=== PATIENT | female | born 1985 | race Caucasian/White ===

== ENCOUNTER → 2017-12-09 | Outpatient (CLI) | payer BC ==
[~2017-12-09] MED LIST: FOLIC ACID800 MCG PO; INDERAL 20MG20 MG PO; IRON325 M2 PO; MOTRIN 600600 MG/TAB PO; PERCOCET 325 MG1 TA2 PO; PRILOSEC 20MG20 MG PO; VENTOLIN0.09 MG; ZYRTEC 10MG10 MG PO
== END ==
LOC: MC.RAD 08:15
DX: N63.11 Unspecified lump in the right breast, upper outer quadrant (principal)

== ENCOUNTER → 2021-08-06 | Outpatient (CLI) | payer MEDICAID | LOC: COL.RAD 14:45 | DX: R07.9 Chest pain, unspecified (principal) | CPT/HCPCS: Q9967 ==

== ENCOUNTER → 2021-09-06 | Outpatient (CLI) | payer MEDICAID ==
[~2021-09-06] MED LIST changes: +FLEXERIL 1010 MG/TAB PO
== END ==
LOC: COL.RAD 07:42
DX: M75.112 Incomplete rotator cuff tear or rupture of left shoulder, not specified as traumatic (principal)

== ENCOUNTER 2021-09-15 03:23 | Emergency (ER) | payer MEDICAID ==
[~2021-09-15] VITALS: Ht 167.6 cm; Wt 79.5 kg
[~2021-09-15 03:23] MED LIST changes: -FLEXERIL 1010 MG/TAB PO
[2021-09-15 03:26] VITALS: TEMP 98.9
[2021-09-15] MEDS ORDERED: FLEXERIL 1010 MG/TAB PO (04:47)
[2021-09-15 05:14] VITALS: BP 144/64; PULSE 98
== END 2021-09-15 05:24 | disposition home or self-care (01) ==
LOC: COL.ER 03:23
DX: R07.89 Other chest pain (principal); F17.210 Nicotine dependence, cigarettes, uncomplicated
CPT/HCPCS: A9284; J1885; J2060; J3010; J7040

== ENCOUNTER → 2021-09-23 | Outpatient (CLI) | payer MEDICAID ==
[~2021-09-23] MED LIST changes: +FLEXERIL 1010 MG/TAB PO
== END ==
LOC: COL.RAD 09:10
DX: S22.31XA Fracture of one rib, right side, initial encounter for closed fracture (principal); X58.XXXA Exposure to other specified factors, initial encounter

== ENCOUNTER 2021-12-26 11:08 | Outpatient (RCR) | payer MEDICAID | END 2021-12-28 | LOC: MKS.ESL.OT | DX: G56.21 Lesion of ulnar nerve, right upper limb (principal) ==

== ENCOUNTER 2022-01-01 14:30 | Outpatient (RCR) | payer MEDICAID | END 2022-01-28 | disposition home or self-care (01) | LOC: MKS.ESL.OT | DX: G56.21 Lesion of ulnar nerve, right upper limb (principal) ==

== ENCOUNTER 2023-02-12 13:10 | Outpatient (RCR) | payer MEDICAID | END 2023-02-12 13:14 | LOC: MKS.ESL.OT 13:10 | DX: G56.21 Lesion of ulnar nerve, right upper limb (principal) ==